=== PATIENT | male | born 1960 ===

== ENCOUNTER 2019-09-16 05:45 | Outpatient (CLI) | payer OTHER ==
[~2019-09-16] VITALS: Ht 182.9 cm; Wt 68.2 kg
== END 2019-09-16 10:43 | disposition home or self-care (01) ==
LOC: PREOP 05:45
PROVIDERS: ATTEND Otolaryngology Otolaryngology/Facial Plastic Surgery
DX: Z01.818 Encounter for other preprocedural examination (principal)